=== PATIENT | female | born 1995 | race Two or more races ===

== ENCOUNTER 2020-08-17 05:38 | Emergency (ER) | payer MEDICAID, OTHER ==
[~2020-08-17] VITALS: Ht 162.6 cm; Wt 96.6 kg
[2020-08-17 05:45] VITALS: BP 123/79
== END 2020-08-17 07:05 | disposition home or self-care (01) ==
LOC: ER 05:38
DX: H00.021 Hordeolum internum right upper eyelid (principal); H10.31 Unspecified acute conjunctivitis, right eye